=== PATIENT | female | born 1985 ===

== ENCOUNTER → 2016-11-29 | Outpatient (CLI) | payer OTHER ==
[~2016-11-29] MED LIST: PRENTAB26 PO
== END | disposition home or self-care (01) ==
LOC: C.PAPS 10:32
PROVIDERS: ATTEND Obstetrics & Gynecology
DX: Z34.00 Encounter for supervision of normal first pregnancy, unspecified trimester (principal)

== ENCOUNTER → 2016-11-29 | Outpatient (CLI) | payer OTHER ==
[2016-11-29 12:03] LABS: BASO % 0.2 %; BASO ABS # 0.01 K/uL (0-0.2); COMPLETE YES; EOS % 1.7 %; HEMATOCRIT 30.1 % (37-47); LYMPH % 24.8 %; MEAN CELL VOLUME 86.7 fL (80-100); MEAN CORPUSCULAR HEMOGLOBIN 29.7 pg (25-34); MEAN CORPUSCULAR HGB CONC 34.2 g/dl (32-36); MEAN PLATELET VOLUME 11.1 fL (7.4-10.4); MONO % 6.9 %; NEUT % 66.4 %; PLATELET COUNT 226 K/uL (130-400); RED BLOOD COUNT 3.47 M/uL (4.2-5.4); WHITE BLOOD COUNT 4.04 K/uL (4.8-10.8)
== END | disposition home or self-care (01) ==
LOC: C.LAB1850 10:58
PROVIDERS: ATTEND Obstetrics & Gynecology
DX: Z34.00 Encounter for supervision of normal first pregnancy, unspecified trimester (principal)

== ENCOUNTER → 2016-11-29 | Outpatient (CLI) | payer OTHER ==
[2016-12-04 00:15] LABS: CHLAMYDIA TRACH RNA*** NOT DETECTED (NOT DETECTED); GC (NEIS GONORRHOEAE)RNA** NOT DETECTED (NOT DETECTED)
== END | disposition home or self-care (01) ==
LOC: C.LABSPEC 16:42
PROVIDERS: ATTEND Obstetrics & Gynecology
DX: Z34.00 Encounter for supervision of normal first pregnancy, unspecified trimester (principal)

== ENCOUNTER → 2017-04-18 | Outpatient (CLI) | payer OTHER ==
[2017-04-18 13:00] LABS: HEMATOCRIT 34.8 % (37-47)
== END | disposition home or self-care (01) ==
LOC: C.LAB1850 12:26
PROVIDERS: ATTEND Obstetrics & Gynecology
DX: Z34.02 Encounter for supervision of normal first pregnancy, second trimester (principal)

== ENCOUNTER 2017-05-10 07:37 | Inpatient (IN) | payer OTHER ==
[2017-05-10] VITALS (11 sets, daily range): BP systolic 154–168; BP diastolic -1–115; PULSE 96–152; TEMP 28.7–34.4; O2SAT 100; Ht 157.5 cm; Wt 48.1 kg
[~2017-05-10] VITALS: Ht 157.5 cm; Wt 48.1 kg
[2017-05-10] MEDS ORDERED: LACTATED RINGER'S 1000ML 1,000 ML IV PRN (08:01)
[2017-05-10] MEDS ORDERED: BUPIVACAINE 0.25% 30 ML VIAL ONE (08:33)
[2017-05-10] MEDS ORDERED: EpHEDrine SULFATE INJ 50 MG/ML AMP ONE (08:34)
[2017-05-10] MEDS ORDERED: FENTANYL 2MCG/ML ROPIV 1.25MG/ML 100ML BAG EPI ONE (08:34)
[2017-05-10] MEDS ORDERED: FENTANYL CITRATE INJ 50 MCG/1 ML 2 ML VIAL ONE ×3 (08:34→20:56)
[2017-05-10 08:37] LABS: HEMATOCRIT 35.9 % (37-47); MEAN CORPUSCULAR HEMOGLOBIN 31.3 pg (25-34); MEAN CORPUSCULAR HGB CONC 34.8 g/dl (32-36); PLATELET COUNT 187 K/uL (130-400); RED BLOOD COUNT 3.99 M/uL (4.2-5.4); WHITE BLOOD COUNT 6.65 K/uL (4.8-10.8)
[2017-05-10] MEDS ORDERED: PATIENT'S ALLERGY INFO NEEDS ENTERED SCH (08:40)
[2017-05-10] MEDS ORDERED: PRENTAB26 PO (08:54)
[2017-05-10] MEDS: LACTATED RINGER'S 1000ML 1,000 ML IV SCH ×2 (09:49→12:36)
[2017-05-10] MEDS ORDERED: LACTATED RINGER'S 1000ML 500 ML IV PRN ×2 (10:06→10:35)
[2017-05-10] MEDS ORDERED: OXYTOCIN 30 UNITS/500ML NSS IV PRN (10:15)
[2017-05-10] MEDS ORDERED: NALOXONE HCL INJ 1 MG in SODIUM CHLORIDE 0.9% 1000ML 1,000 ML IV PRN (10:35)
[2017-05-10] MEDS ORDERED: NALOXONE HCL INJ 0.4 MG/1 ML VIAL/CARP IV PRN (10:45)
[2017-05-10] MEDS ORDERED: DiphenhydrAMINE HCL 50 MG/ML VIAL IV PRN (10:45)
[2017-05-10] MEDS ORDERED: EpHEDrine SULFATE INJ 50 MG/ML AMP IV PRN (10:45)
[2017-05-10] MEDS ORDERED: ONDANSETRON INJ 2 MG/ML 2 ML VIAL IV PRN (10:45)
[2017-05-10] MEDS ORDERED: NALBUPHINE HCL INJ 10 MG/ML AMP IV PRN (10:45)
[2017-05-10] MEDS ORDERED: FENTANYL 2MCG/ML ROPIV 1.25MG/ML 100ML BAG EPI PRN (10:45)
[2017-05-10] MEDS ORDERED: MISOPROSTOL 200 MCG TAB ONE (16:43)
[2017-05-10] MEDS ORDERED: OXYTOCIN 30 UNITS/500ML NSS IV ONE (16:44)
[2017-05-10] MEDS ORDERED: METHYLERGONOVINE MALEATE 0.2 MG/ML AMP ONE ×2 (16:44→18:36)
[2017-05-10] MEDS ORDERED: CARBOPROST TROMETHAMINE 250 MCG/ML AMP ONE ×2 (16:44→18:42)
--- NOTE | 2017-05-10 18:34 | Anesthesia Procedure Note ---
Anesthesia Epidural Removal Nt Date & Time May 10, 2017 at 18:34 Vital Signs Pain Intensity: 0.0 Notes Mental Status: alert / awake / arousable, participated in evaluation Nausea / Vomiting: adequately controlled Pain: adequately controlled Airway Patency, RR, SpO2: stable & adequate BP & HR: stable & adequate Hydration State: stable & adequate Neuraxial Anesthesia: was administered Anesthetic Complications: no major complications apparent, pt satisfied with anesthetic care Epidural: removed without complications, with tip intact
[2017-05-10] MEDS ORDERED: MIDAZOLAM HCL 1 MG/ML 2ML VIAL ONE ×4 (20:07→23:07)
--- NOTE | 2017-05-10 20:19 | [facility] Post Operative Brief Note ---
Immediate Operative Summary Operative Date May 10, 2017. Pre-Operative Diagnosis hemorrhage Post-Operative Diagnosis hemorrhage Procedure(s) Performed exam under anesthesia, insertion of Bakri balloon, circumferential stitch of cervix, repair of left vaginal sulcal tear Surgeon Shoshana Gomez DO Service Planner Surgeon(s) Vince Ortega MD Estimated Blood Loss 2L total since delivery Findings Approximately 2L blood loss since delivery, includes immediate bleed of approx 500cc, weighed chux after vaginal repair of approx 1000, and another 500cc in transfer to OR. Specimens none Drains chatterjee, clear yellow. Bakri balloon (intrauterine balloon) Anesthesia general Complication(s) hemorrhage Disposition Surgical ICU
[2017-05-10] MEDS ORDERED: TRANEXAMIC ACID INJ 1,000 MG in SODIUM CHLORIDE 0.9% 100ML 100 ML IV ONE ×2 (20:30→21:45)
[2017-05-10 20:37] LABS: MEAN CELL VOLUME 90.9 fL (80-100); MEAN CORPUSCULAR HEMOGLOBIN 29.9 pg (25-34); MEAN CORPUSCULAR HGB CONC 32.9 g/dl (32-36); MEAN PLATELET VOLUME 9.4 fL (7.4-10.4); PLATELET COUNT 93 K/uL (130-400); PLT ESTIMATE DECREASED; RED BLOOD COUNT 1.54 M/uL (4.2-5.4)
[2017-05-10] MEDS ORDERED: CALCIUM GLUCONATE 10% 2,000 MG in SODIUM CHLORIDE 0.9% 50ML 50 ML IV STA (20:37)
[2017-05-10] MEDS ORDERED: CALCIUM GLUCONATE IV SCH (20:45)
[2017-05-10] MEDS ORDERED: NOREPINEPHRINE BIT INJ 8 MG in DEXTROSE 5% 500ML 500 ML IV PRN (20:45)
[2017-05-10] MEDS ORDERED: PHENYLEPHRINE HCL INJ 20 MG in DEXTROSE 5% 500ML 500 ML IV PRN (20:45)
[2017-05-10] MEDS ORDERED: SODIUM CHLORIDE 0.9% IV SCH (20:45)
--- NOTE | 2017-05-10 20:48 | Critical Care Consultation ---
Critical Care Consultation Date of Consultation: May 10, 2017. Attending Physician: Rupal Gomez D.O. Reason for Consultation: Acute Blood Loss Post Hemorrhage History of Present Illness Jaylen Keane is a 32 yo female who delivered her first child this evening. She began oozing from her vaginal area and was taken to the O.R for exploration of possible uterine atony. Dr. Gomez found a cervical laceration and sutured it while also placing a bakri balloon. Pt's stat labs were H&H 4.6/14; Platelets 93. Pt had lost 2,000cc of blood since . She is B- and received 2u of PRBCs O- intraoperatively. She had been hypotensive in the OB OR prior to ICU arrival with SBP in the 60's. Pt had already received Cytotec which was quickly expelled secondary to BM. She then received Methylergonovine 0.2mg and Carboprost Tromethamine 250mcg at 1847 will in the OB OR. Once in the ICU; she was initially started on phenylephrine drip which was quickly held when SBP danny into 180's. Pts goal sbp was <100 however, she continued to rise into the 130-150's. Pt was continuing to ooze vaginally post-op; which was concerning to Dr. Gomez as this was the pts initial presentation that preempted the trip to the OR. She was brought to the ICU intubated. I called Lacey in the Blood Bank at 2006 to initiate the Massive Transfusion Protocol as there was reported delay in getting blood There were at minimum myself, Dr. Moya, Dr. Gomez, and the mechanical unit repairer reaching out to [facility] for the closest and first available transfer. Pt received another 4u of PRBCs (total of 6), 1 Cryo, 4 plasma, 1 plt, and 2g of TXA in total. Myself and Dr. Moya had spoke with Dr. Dockery. This exhausted the hospitals blood products supplied for this patient. Willian Contreras was called in at this time as well. Dr. Moya had spoke with the EMS asking them to stage for this patient here at the hospital to expedite transport. This did not happen; however, they were sending more units of packed red blood cells with approximately arrival around 10:30 PM. We would also receive additional units of FFP from [place]. Pt had ABG of 7.108/33.6/349/10.6 with settings of AC 450/12/5/100%. She was weaned back to 40% FIO2 and received 2Amps of BiCarb. Pt was continuing to ooze vaginally at some points a pulled blood could be seen laying in the bed in her groin area. The bakri balloon contained 1200 mL of additional blood. At this time Dr. Moya ultrasounded the patient's abdomen secondary to distention being noted. He stated there was a small amount of free fluid in the abdomen and nothing noted in the uterine area. Dr. Gomez felt that this could be backwards flow from the fallopian tubes. At this point , there was concern for DIC, retained placenta accreta, or internal bleeding. At this time pt could not be flown 2/2 weather. There was concern for the length of time involved in ground transfer to either of the possible hospitals. Ultimately, all hospitals declined accepting the pt. With no success in regards to transfer; it was decided to take the patient to the O.R. for emergent hysterectomy and abdominal exploration. Pt prior to leaving ICU for transfer was alert and nodding her head to what was said to her. Dr. Lester, Dr. Ortega, and Dr. Gomez were in the O.R. to begin the procedure around 2200. They have continued to have issue with hemostasis and which to transfer immediately post-operatively. Per recommendation from Dr. Dockery 2,500u of Kcentra and 4mg of Factor 7 have been ordered. UPDATE: [facility] accepting patient for transfer status post completion the OR. Blood arrived to the OR around 2250. Pt was receiving 4 additional units of packed red blood cells (total of 10u). She had already received intraoperatively another 4 units of FFP and one of cryoprecipitate. ROS could not be obtain as pt was intubated and sedated. During moments of arousal she nodded yes to pain. However, I was told pt is Non-Arabic speaking and I am not sure if she was truly answering his questions. Past Medical/Surgical History Medical Problems: IUGR (intrauterine growth restriction) Dermatitis High Risk Post Hemorrhage Acute Blood Loss Anemia Surgical History: Emergent hysterectomy cervical laceration repair Family History Unknown at this time Social History Smoking Status: Never Smoker Marital Status: Housing Status: lives with family Allergies Coded Allergies: No Known Allergies (Unverified , 05/10/17) Verified with the patient. Home Medications Scheduled Multivit/Min/Iron/Fol Ac/Pren ( Vitamin), 1 TAB PO DAILY Current Inpatient Medications Current Inpatient Medications Medications (Trade) Dose Ordered Sig/John Route Start Time Stop Time Status Last Admin Dose Admin Lactated Ringer's 1,000 ml @ 125 mls/hr Q8H IV 05/10/17 08:41 05/12/17 08:40 05/10/17 12:36 125 MLS/HR Lactated Ringer's 1,000 ml @ 999 mls/hr Q1H1M PRN IV 05/10/17 08:01 06/09/17 08:00 Oxytocin (Pitocin IV) 30 units UD PRN IV 05/10/17 10:15 06/09/17 10:14 05/10/17 11:13 30 UNITS Lactated Ringer's 500 ml @ 999 mls/hr Q31M PRN IV 05/10/17 10:06 06/09/17 10:05 Fentanyl/ Ropivacaine (Fentanyl 2MCG/ Ml/Ropivacaine 1.25MG/ML) 100 ml PRN PRN EPI 05/10/17 10:45 05/11/17 10:44 Naloxone HCl (Narcan Inj) 0.1 mg UD PRN IV 05/10/17 10:45 05/11/17 10:44 Lactated Ringer's 500 ml @ 999 mls/hr Q31M PRN IV 05/10/17 10:35 05/11/17 10:34 Ephedrine Sulfate (EpHEDrine SULFATE INJ) 10 mg Q5M PRN IV 05/10/17 10:45 05/11/17 10:44 Diphenhydramine HCl (Benadryl Inj) 25 mg Q6H PRN IV 05/10/17 10:45 05/11/17 10:44 Nalbuphine HCl (Nubain Inj) 5 mg Q10M PRN IV 05/10/17 10:45 05/11/17 10:44 Naloxone HCl 1 mg/ Sodium Chloride 1,002.5 ml @ 50 mls/hr Q20H3M PRN IV 05/10/17 10:35 05/11/17 10:34 Ondansetron HCl (Zofran Inj) 4 mg Q6H PRN IV 05/10/17 10:45 05/11/17 10:44 05/10/17 18:04 4 MG Review of Systems ROS cannot be obtained secondary to patient condition, sedation, and intubation. Physical Exam Vital Signs - as noted Laboratory Data - as noted Physical Exam: General -patient sedated on Versed & Fentanyl infusions ENT -endotracheal tube in place Lungs - No paradoxical chest wall movement, coarse to auscultation bilaterally, no wheezes, rales, or rhonchi Heart -sinus tachycardia, No murmur, rubs, clicks, or gallops appreciated Abdomen - BS absent, no bruits noted, distended, slightly firm Extremities - No edema, pedal pulses intact Neuro - Sedated on Versed Infusion CN:No facial asymmetry, uvula/tongue midline Laboratory Results Last 24 Hours Test 05/10/17 08:12 05/10/17 19:30 White Blood Count 6.65 K/uL Red Blood Count 3.99 M/uL Hemoglobin 12.5 g/dL Hematocrit 35.9 % Mean Corpuscular Volume 90.0 fL Mean Corpuscular Hemoglobin 31.3 pg Mean Corpuscular Hemoglobin Concent 34.8 g/dl RDW Standard Deviation 42.7 fL RDW Coefficient of Variation 13.1 % Platelet Count 187 K/uL Mean Platelet Volume 11.0 fL Diagnostic Results CHEST ONE VIEW PORTABLE HISTORY: Intubated and Central Line COMPARISON: None. FINDINGS: The endotracheal tube terminates 2.5 cm from the leandro. Nasogastric tube terminates in the stomach. The fenestrated line of the nasogastric tube is seen at the distal esophagus. Right jugular central venous catheter terminates in the expected location of the proximal SVC. No pneumothorax. No pleural effusions. The lungs are clear. IMPRESSION: Nasogastric tube should be advanced by approximately 5 cm. Otherwise, satisfactory support line placement. Electronically signed by: Cesar Pettit M.D. 05/10/2017 9:20 PM Dictated Date/Time: 05/10/2017 9:19 PM Assessment & Plan PLAN: Heme: * Acute Blood Loss Anemia 2/2 to post- hemorrhage * POD #0 for emergent hysterectomy * ENCO drain in place * Abdomen closed * Vagina packed * Monitor bleeding * Concern for DIC * Fibrinogen and Fibrin Degradation Product orders pending * Trend H&H closely * Massive Transfusion protocol implemented * Will monitor closely and give direction per replacement * Replace 1:1:1 * Current Count of blood products as of 2330: 10PRBCs; 3 cryoprecipitate; 11 Plasma; 3 platelets * We'll administer additional platelets as soon as they arrive; 3 units of packed red blood cells on hold and blood bank * Transfer emergently Neuro: * Continue sedation to a RASS of -2 * Versed and Fentanyl Titrated per parameters on orders Resp: * Continue intubation at this time * Vent settings: AC 20/370/5/40% * Low Tidal Volume secondary to high risk of lung injury * Repeat ABG as needed & with changes * Monitor for s/s of TRALI/TACO * CXR qAM if not transferred CV: * Avoid Hypertension: Goal SBP < 100 * Arterial Line in place to monitor SBP * Monitor on telemetry Fluids/Renal: * Lactated Ringers @ 125 * Strict I&O's * Monitor PRP * Likely BABITA ID: * Monitor for s/s of infection * Post Op Abx GI/Nutrition: * NPO * ENOC Drain in place: Monitor Output Endocrine: * Accu-Checks per protocol, started insulin infusion for 2 blood sugars greater than 180 * No known endocrine disorders CCT: 180 Minutes; This time is exclusive of all separately billable procedures. Thank you for involving us in the care of this patient. Please refer to Dr. Glenn Moya's addendum for further recommendations. I have personally evaluated and examined this patient. I agree with assessment and plan of Spring Doaln PA-C. In summary, I was contacted by Spring Dolan, regarding the patient in obstetrical, hemorrhagic shock. I arrived at the ICU same time the patient did. In discussing with anesthesia the patient had not received the amount of blood product that was ordered. I immediately proceeded to place a ultrasound-guided central venous catheter in the right internal jugular vein. Up to this point the patient had received 2 units of packed red blood cells without additional blood products. We immediately ordered the last remaining blood products available to the patient which was 4 more units of packed red blood cells, 4 units of plasma which had been followed, 1 unit of platelet which completely emptied the platelets supply of the hospital, 1 g TXA. I assisted anesthesia with placement of a left radial/brachial arterial line. Patient was extremely hypotensive and tachycardic due to hemorrhagic shock. OB was called to the bedside and the patient patient continued to ooze from her vagina. We were in contact with [facility] for possible transfer secondary to exhaustion of blood product at [facility]. Due to weather no helicopter EMS units were flying, therefore we were unable to have blood product airlifted to the patient and the patient ultimately airlifted to a tertiary care center for possible hysterectomy and IR guided embolization. Efforts were made to obtain additional blood product from [facility]'s as well as the [facility] [place]. The patient became hemodynamically unstable again secondary to ongoing blood loss. I did a limited bedside ultrasound, it appeared there was minimal intra- abdominal free fluid, particularly in the pelvic gutters there did not appear to be free fluid and the uterus appeared large with clots in addition to packing placed prior to my arrival. General surgery was emergently consulted. At this point we consumed all the available blood product to correct the patient 's hemorrhagic shock and associated coagulopathy. There was no ability to fly the patient to a tertiary care center. Additional blood product was 30-45 minutes away and reportedly being sent. Patient transport would had to have occurred by ground ambulance, they were not present at the hospital yet, transport time would be at least 1.5 hours. Given the extremities of the patient the decision was made to take her emergently for hysterectomy and await additional blood products as the patient would continue to hemorrhage and was too unstable for transfer. The was updated and consented for the procedure. I personally [facility], the builder operator (Dr. May ) reported that he was a single builder operator and will likely be unable to manage the complications at [facility] [place]. While the patient was in the operating room I continue to work with blood bank as well as consult [facility] to arrange transport following surgery. Intraoperatively they were able to complete a total hysterectomy and removed the cervix. Intraoperative findings were concerning for possible retained products and or placenta accreta. The patient continued to have significant ongoing blood loss. At this point I had already contacted Dr. Edyta Dockery, given the inability to correct the coagulopathy we proceeded to give another gram of TXA acid, K Centra, and factor VII. Additional blood products started to arrive from outside facilities and were administered as they were procured. At this point it appears the patient received a total of 10 units of packed red blood cells, 11 units of FFP, 6 units of platelets, 3 units of cryoprecipitate, and was given another gram of TXA at the recommendation of Dr. Dockery. [facility] accepted the patient in transport. After the patient was transferred from the OR suite to the ICU the patient remained hemodynamically stable arterial blood pressures were roughly 140 systolic heart rate improved to 108. Repeat labs were obtained H&H was 8.4 and 25, fibrinogen 218 elevated degradation products, INR 1, PTT of 61.7. Last arterial blood gas revealed a pH of 7.31 PCO2 of 37 PO2 of 124 base excess of -8 on vent settings of assist control rate of 20, tidal volume of 370 (approximately 6 mL/kg) PEEP of 5 FiO2 of 40%. My concern at this point was transfusion associated circulatory overload, I felt that we were likely approaching adequate resuscitation of blood products. Our goal resuscitation and blood product was 1 -1-1, we had not achieved that with limited availability of platelets. I performed a repeat limited bedside ultrasound, there appeared to be trace free fluid in the right paracolic gutter, limited echocardiography revealed no pericardial effusion, hyperdynamic EF, limited chest ultrasound revealed bilateral B lines consistent with interstitial edema on the anterior chest, the IVC was visualized and there was no respiratory variation. Patient was covered with warm blankets and heat lamps to prevent secondary hypothermia. Moments were taken to allow skin to skin contact with the patient's new child prior to transfer. Repeat chest x-ray was performed, there was no evidence of pneumothorax, the central venous catheter was in appropriate position, the endotracheal tube was in appropriate position. A esophageal temperature probe had also been placed. Patient was hemodynamically stable and transferred to [facility] for further evaluation and management. Additional blood products were sent with the patient in case of hemodynamic instability or ongoing blood loss. I have personally spent 240 minutes of critical care time in the direct management of this patient. This is a life/limb threatening event. This includes time spent evaluating patient, direct bedside care, chart review, placing orders, interpretation of diagnostic studies, discussion with consultants, patient, and family members, as well as other required patient management activities. This time is exclusive of all separately billable procedures, and teaching time and separate from and in addition to any other critical care service time.
[2017-05-10] MEDS ORDERED: MIDAZOLAM 125MG/250ML D5W 250 ML IV PRN (20:57)
[2017-05-10] MEDS ORDERED: FENTANYL 1250MCG/250ML NSS 250 ML IV PRN (20:57)
[2017-05-10] MEDS ORDERED: SODIUM BICARB 8.4% INJ 50 MEQ/50 ML SYR IV STA (21:13)
[2017-05-10] MEDS ORDERED: SODIUM BICARB 8.4% INJ 50 MEQ/50 ML SYR IV ONE (21:15)
--- NOTE | 2017-05-10 21:22 | DIAGNOSTIC IMAGING REPORT ---
CHEST ONE VIEW PORTABLE HISTORY: Intubated and Central Line COMPARISON: None. FINDINGS: The endotracheal tube terminates 2.5 cm from the leandro. Nasogastric tube terminates in the stomach. The fenestrated line of the nasogastric tube is seen at the distal esophagus. Right jugular central venous catheter terminates in the expected location of the proximal SVC. No pneumothorax. No pleural effusions. The lungs are clear. IMPRESSION: Nasogastric tube should be advanced by approximately 5 cm. Otherwise, satisfactory support line placement. Electronically signed by: Cesar Pettit M.D. 05/10/2017 9:20 PM Dictated Date/Time: 05/10/2017 9:19 PM
[2017-05-10 21:25] LABS: ISTAT ARTERIAL BLOOD GAS HCO3 11 meq/L (19-24); ISTAT ARTERIAL BLOOD GAS PCO2 34 mmHg (35-46); ISTAT ARTERIAL BLOOD GAS PO2 349 mmHg (80-95); ISTAT ARTERIAL BLOOD GAS pH 7.11 (7.35-7.45); ISTAT CARBON DIOXIDE 12 mEq/l (24-31); ISTAT HEMATOCRIT 33 % (37-47); ISTAT HEMOGLOBIN 11.2 g/dl (12.0-16.0); ISTAT SODIUM 136 mEq/L (135-144)
[2017-05-10] MEDS ORDERED: ALBUMIN HUMAN 5% 12.5 GM/250 ML VIAL IV ONE (21:33)
[2017-05-10 21:45] LABS: HEMATOCRIT 26.7 % (37-47); MEAN CELL VOLUME 88.1 fL (80-100); MEAN CORPUSCULAR HEMOGLOBIN 30.7 pg (25-34); MEAN CORPUSCULAR HGB CONC 34.8 g/dl (32-36); MEAN PLATELET VOLUME 9.7 fL (7.4-10.4); PLATELET COUNT 60 K/uL (130-400); RED BLOOD COUNT 3.03 M/uL (4.2-5.4); WHITE BLOOD COUNT 7.74 K/uL (4.8-10.8)
[2017-05-10] MEDS ORDERED: PROTHROMBIN COMP CONC- KCENTRA 2,500 UNIT in SYRINGE 0 ML IV STA (22:38)
[2017-05-10] MEDS ORDERED: COAGULATION FACTOR VIIA IV STA (22:38)
[2017-05-10] MEDS ORDERED: COAGULATION FACTOR VIIA IV SCH (23:00)
[2017-05-10] MEDS ORDERED: PROTHROMBIN COMP CONC- KCENTRA 2,500 UNIT in SYRINGE 0 ML IV SCH (23:00)
[2017-05-10] MEDS ORDERED: CALCIUM GLUCONATE 10% 2,000 MG in SODIUM CHLORIDE 0.9% 50ML 50 ML IV SCH (23:30)
--- NOTE | 2017-05-10 23:45 | [facility] Operative Report ---
Operative Report Operative Date May 10, 2017. Pre-Operative Diagnosis Post-Delivery Bleeding Post-Operative Diagnosis Post-Delivery Bleeding Procedure(s) Performed Exploratory Laparotomy, Hysterectomy, Vaginal packing, sew of vaginal laceration Surgeon Dr. Lester Sales Process Manager Surgeon(s) Dr. Gomez Estimated Blood Loss 2 liters Findings intra-uterine hemorrhage;vaginal laceration Specimens A. Uterus B. Cervix C. Possible [facility] Drains chatterjee, clear yellow. Bakri balloon (intrauterine balloon) Anesthesia general Disposition Surgical ICU Description of Procedure Gross history. This is a 32-year-old female who recently underwent a routine vaginal delivery late this afternoon. She had postoperative vaginal bleeding to the point that she had apparently an intrauterine balloon placed. I was called by the anesthesia team to the intensive care unit for massive vaginal bleeding. The ICU team anesthesia team and Dr. Adler were all at bedside. Blood products had essentially been exhausted and because of weather they were unable to fly the patient to a tertiary center. The decision was made to take the patient to the operating room for emergent laparotomy with anticipated hysterectomy. After informed consent was obtained the patient was taken emergently to the operating suite placed in a supine position. Patient was already intubated from the ICU. The abdomen was sterilely prepped and draped in usual fashion. A lower midline incision was made with a 10 blade scalpel and carried down through the soft tissue using electrocautery. Anterior rectus fascia was opened using electrocautery. Peritoneum was elevated with hemostats and incised under direct vision using a Metzenbaum scissor. Once in the abdomen we had a large [place] of clear fluid. There was no blood in the abdomen whatsoever. We did immediately note that small bowel was very pale. Because of no obvious uterine perforation we quickly made the decision to perform a hysterectomy. We were able to elevate the uterus and began by making a bladder flap using Metzenbaum scissors and blunt dissection. Once we had the bladder flap taken down we used LigaSure device to come across the round and broad ligaments. We continued to primarily used LigaSure to come down onto the cervical canal itself. We did leave the bilateral tubes and ovaries behind. At this point in the case Dr. Ortega also became available and scrubbed into the case. At this point we used Mateus clamps to come across the cervical canal. We transected it and used #1 Vicryl stick ties to tie off the clamped portions. We originally stayed above the cervix however when we looked in the cervical canal there continued to be a fair amount of backbleeding. We therefore came down lower and using the same technique with Mateus clamps and # 1 Vicryl came across the posterior vaginal wall took out the cervix as well. The patient appeared to be in DIC. She continued to have some generalized oozing. We tied off the vaginal cuff using 0 Vicryl in interrupted figure-of- eight fashion. We thoroughly irrigated the abdomen. Again there was no intra- abdominal pathology to speak of. Prior to closing the cuff there was some abnormal appearing tissue that we removed and sent to pathology to evaluate for placenta accreta. After washing out the abdomen we placed a 10 flat John- Salcedo drain into the pelvis and brought out through a separate stab incision and secured to the skin using 2-0 silk. The fascia was closed using #1 PDS starting at either pole running them and securing them in the midline. Soft tissue was irrigated and closed using skin ana. Please refer to Dr. Dr. Gomez and Dr. Ortega's dictation for their operative note as well. Following closure of the abdominal incision they did a vaginal exploration with oversew of vaginal laceration as well as vaginal packing. The patient will remain intubated transferred back to the intensive care unit where his anticipated she will be transferred to a tertiary center to treat her ongoing suspected DIC. I attest to the content of the Intraoperative Record and any orders documented therein. Any exceptions are noted below.
[2017-05-10 23:49] LABS: ISTAT ARTERIAL BLOOD GAS HCO3 18 meq/L (19-24); ISTAT ARTERIAL BLOOD GAS PCO2 32 mmHg (35-46); ISTAT ARTERIAL BLOOD GAS PO2 139 mmHg (80-95); ISTAT ARTERIAL BLOOD GAS pH 7.34 (7.35-7.45); ISTAT CARBON DIOXIDE 19 mEq/l (24-31); ISTAT DELIVERY SYSTEM Ventilator; ISTAT FIO2 40 %; ISTAT PEEP 5; ISTAT RATE 20; ISTAT SITE Art Line; Vt 370
[2017-05-10 23:58] LABS: HEMATOCRIT 25.1 % (37-47)
[2017-05-11] VITALS (11 sets, daily range): BP systolic 148–167; BP diastolic 98–115; PULSE 99–113; TEMP 34.2–34.5; O2SAT 98–100
[2017-05-11 00:05] LABS: ISTAT ARTERIAL BLOOD GAS HCO3 19 meq/L (19-24); ISTAT ARTERIAL BLOOD GAS PCO2 37 mmHg (35-46); ISTAT ARTERIAL BLOOD GAS PO2 124 mmHg (80-95); ISTAT ARTERIAL BLOOD GAS pH 7.31 (7.35-7.45); ISTAT CARBON DIOXIDE 20 mEq/l (24-31); ISTAT HEMATOCRIT 21 % (37-47); ISTAT HEMOGLOBIN 7.1 g/dl (12.0-16.0); ISTAT SODIUM 142 mEq/L (135-144)
[2017-05-11] MEDS ORDERED: TRANEXAMIC ACID INJ 1,000 MG in SODIUM CHLORIDE 0.9% 100ML 100 ML IV ONE (00:15)
[2017-05-11 00:18] LABS: PARTIAL THROMBOPLASTIN RATIO 2.4; PROTHROMBIN TIME (PATIENT) 10.3 SECONDS (9.0-12.0)
[2017-05-11 00:20] LABS: CALCIUM 6.6 mg/dl (8.5-10.1); CREATININE 1.2 mg/dl (0.60-1.20); MAGNESIUM 1.2 mg/dl (1.8-2.4); PHOSPHORUS 3.9 mg/dl (2.5-4.9); POTASSIUM 3.4 mmol/L (3.5-5.1)
--- NOTE | 2017-05-11 00:20 | Procedure Note ---
Procedure Note Procedure Date May 11, 2017. Central Line Procedure time out: side/site verified, patient ID confirmed, sterile procedure used Consent obtained: emergent consent implied Time of procedure: 20:15 Performed by: attending Indications: poor venous access, central drug admin. Contraindications: coagulopathy Prep: chlorhexadine prep, sterile drape, sterile procedures used Volume anesthetic (ml's): 0 Central line lumen: double Central line location: internal jugular (R) Additional details: ultrasound guidance, Selinger technique used, line sutured , good blood return CXR: appropriate position Complications: none Patient tolerated procedure: well Post-procedure vital signs: reviewed and stable Comments: Critical Care Medicine Point of Care Bedside Ultrasound Procedure: Procedural Ultrasound Procedure Date: 05/10/2017 Indication: Obstetrical, hemorrhagic shock Attending: Sujatha Moya DO Resident/Physician Facilities Planner: Shoshana Dolan Artery AND Vein visualized: Yes Compressible Vein: Yes Guidewire or Short Catheter seen in vein prior to dilation: Yes Line confirmed in Vein with ultrasound: Yes Lung Sliding on side of attempt (if applicable): Yes If no lung sliding or not obtained has CXR been ordered: Yes Impression: Successful placement of right 9 Bengali central lumen catheter Images obtained are saved for permanent record
--- NOTE | 2017-05-11 00:54 | Procedure Note ---
Procedure Note Date of Service May 11, 2017. Procedure Note Critical Care Medicine Point of Care Bedside Ultrasound Procedure: Limited abdominal ultrasound Indication: Hemorrhagic obstetrical shock, enlarging abdomen Date: 05/10/2017 Attending: Sujatha Moya DO Physician Obstetrician Gynecologist: Spring Dolan Organs Examined: Liver, Kidney, Spleen, Genitourinary system, uterus Pericardial Fluid: Absent Hepatorenal fluid: Present: Small Splenorenal fluid: Absent Rectovesical fluid: Absent Additional Findings: Enlarged uterus containing echogenic material as well as fluid-filled bakri balloon tamponade Impression: Small amount of intra-abdominal fluid not consistent with massive intra-abdominal bleeding Plan: Patient going to the operating room for emergent hysterectomy Images obtained are saved for permanent record Critical Care Medicine Point of Care Bedside Ultrasound Procedure: Limited Transthoracic Echocardiogram Indication: Hypotension, massive transfusion Date: 05/10/2017 Attending: Sujatha Moya DO Fellow/Resident/Physician Obstetrician Gynecologist: Spring Doaln Organs Examined: Heart, Vascular system Pericardial fluid: Absent Right ventricle size: Normal LV Contractility: Hyperdynamic RV Contractility: Hyperdynamic IVC size: No respiratory variation Mechanically ventilated breaths: Yes Hemodynamic Status: Heart rate 108, systolic blood pressure 150 IVC respiratory variation % Positive Pressure breaths: No variation (> 20% variation indicative of fluid responsiveness) Intravascular volume status: Hypervolemic state Impression: Concern for transfusion associated circulatory overload, hyperdynamic EF, hypervolemia Plan: Limited additional fluid and products Images obtained are saved for permanent record Critical [facility] [place] Medicine Point of Care Bedside Ultrasound Procedure: Limited Bedside Lung Ultrasound Procedure Date: 05/10/2017 Indication: Massive transfusion, obstetrical shock Attending: Sujatha Moya DO Resident/Physician Obstetrician Gynecologist: Spring Dolan Organs Examined: Lung BLUE point (upper), BLUE point (lower), Phrenic Point (axillary), PLAPS point ( posterior) A lines visualized: Absent, Hemithorax: bilaterally B lines visualized: Presents, Hemithorax: Bilaterally into the anterior chest Lung Sliding: Presents bilaterally, Hemithorax: Bilaterally Tissue-like Sign: Negative, Hemithorax: Bilaterally Shred Sign: Negative, Hemithorax: Bilaterally Quad Sign: Negative, Hemithorax: Bilaterally Sinusoid Sign: Negative, Hemithorax: Bilaterally Impression: Evidence of interstitial edema concerning for volume overload Plan: Limit additional fluids Images obtained are saved for permanent record
--- NOTE | 2017-05-11 01:46 | Anesthesiology Progress Note ---
Anesthesia Post Op Note Date & Time May 11, 2017 at 01:44 Vital Signs Pain Intensity: 0.0 Vital Signs Past 12 Hours Date Time Temp Pulse Resp B/P (MAP) Pulse Ox O2 Delivery O2 Flow Rate FiO2 05/10/17 23:40 107 20 156/106 (135) 100 Mechanical Ventilator 40 05/10/17 23:34 107 20 162/109 (122) 100 Mechanical Ventilator 40 05/10/17 23:24 34.3 108 20 175/111 (122) 100 Mechanical Ventilator 40 05/10/17 20:40 122 12 Mechanical Ventilator 100 05/10/17 20:30 160 12 Mechanical Ventilator 100 05/10/17 20:20 100 05/10/17 20:19 160 12 Mechanical Ventilator 100 Notes Mental Status: see Notes Pt Amnestic to Procedure: Yes Nausea / Vomiting: adequately controlled Pain: adequately controlled Airway Patency, RR, SpO2: see Notes BP & HR: see Notes Hydration State: see Notes Patient was kept intubated and sedated and had a massive resuscitation that ultimately ended in her being transferred to an outside facility. Please refer to additional meditec noted for full details.
--- NOTE | 2017-05-11 02:23 | Anesthesiology Progress Note ---
Anesthesia Progress Note Date of Service May 11, 2017. Progress Notes I had seen Ms. Keane earlier in the day as she presented for an induction and the attending OB physician had requested an early epidural placement to aid in the initial examination of the patient in labor and delivery. The epidural was placed easily on the first attempt and patient soon obtained excellent pain relief. I was called later in the evening by her nurse after successful vaginal delivery of her baby as she requested that I pull the epidural. Patient said she felt well and denied any residual numbness as the local anesthetic had worn off. Epidural catheter was removed without incident. I was on the labor and delivery floor as the OB staff physician Dr. Gomze had called for a of another patient when it was reported by Ms. Keane' s nurse that she was experiencing some vaginal bleeding. I was asked to be on standby while they attended to her. I was informed by the staff OB physician and OB nursing that the would now be on hold as they planned to take Ms. Keane back to the labor and delivery operating room for exam under anesthesia to determine source of her hemorrhage. Patient was brought back urgently to the operating room and placed on standard ASA monitors. She was preoxygenated and intubated on the first attempt using a rapid sequence induction with cricoid pressure. I also placed an additional 18 G peripheral IV in her right hand to ensure I had two points of access for resuscitation. Patient was mildly hypotensive and tachycardic at the beginning of the procedure that worsened throughout the case. I administered a total of 3 liters of crystalloid during the case and also 250ml of voluven near the beginning to try and combat her hypotension and tachycardia. Her blood pressure was also supplemented with multiple doses of phenylephrine, ephedrine and vasopressin during the case as noted on the OR record. As patient became more unstable, I initially had OR nurse call for 2 units of type specific blood. As she continued to deteriorate, I then had the nurse change this to emergency release blood. I also called the blood bank personally and requested the emergency release blood and asked for FFP (which I was told takes 20 minutes to thaw). I also spoke with ICU PA and stated patient was unstable and I would be brining her down intubated and she would require a significant resuscitation ( ICU PA relayed this message to ICU attending and he was present when patient ultimately arrived in the ICU). When the 2 units of pRBC's arrived finally they were given in rapid succession and the obstetricians had placed a bakri balloon and repaired a cervical laceration. While giving the units to the patient, 2 ICU nurses placed the patient on monitor and a zoo veterinarian draw a STAT CBC ( patient found to be severely anemic). I also asked blood back to take the additional products to the ICU as I was going to bring her there JANE. Patient was placed on monitors and transported to the ICU intubated on 100% O2. Of note , patient had barely palpable peripheral pulses but had strong bilateral carotid pulses throughout the case. On arrival to the ICU, central access was obtained by ICU attending while I placed a left radial arterial line under ultrasound guidance. During this time, additional blood products arrived and patient received an additinal 4 units of pRBC's, 1 of cryo, 1 of platelets and 4 FFP, at which point had exhausted the hospital's supply for this patient. Please see ICU attending and PA note for full details regarding transfer attempts and successfully obtaining additional blood products from outside hospital and sources. OB attending Dr. Gomez had asked attending general surgeon Dr. Lester to come to bedside and with consultation of the ICU physician and staff ultimately decided to take the patient to the OR for control of hemorrhage and hysterectomy. Myself and on- call HEDIS ABSTRACTOR transported the patient to the OR on full monitors, intubated and on 100% oxygen. Prior to transport patient was nodding head and moving her arms. In the OR, the massive transfusion continued as we initially gave the patient albumin while we waited for the blood products from the outside hospital. Products arrived shortly after starting the procedure and she was given 2 of platelets, 2 of cryo, 6 of FFP and 4 units of pRBC's. Patient was slightly tachycardic but normotensive and did NOT require any additional vasopressor support. Of note, she had previously received 2 grams of TXA in the ICU prior to bringing her back to the OR. Patient was actively warmed in the OR with an upper martina hugger, head wrapped in towels and warmed fluids through the [place] Hi-Gilbert warmer (via central line). This was continued in the ICU as patient's temperature was noted to be under 36 degrees C. After successful hysterectomy, patient was brought back to the ICU intubated and on monitor with 100% oxygen. Full report was given to the ICU team and they assumed care of this patient. Her blood pressure remained stable in the ICU and patient was ultimately transferred to an OSH (see ICU notes for full details).
--- NOTE | 2017-05-11 03:44 | [facility] Operative Report ---
Operative Report Operative Date May 11, 2017. Pre-Operative Diagnosis Hemorrhage Post-Operative Diagnosis Hemorrhage, DIC Procedure(s) Performed Exploratory Laparotomy, Hysterectomy, Vaginal packing, sew of vaginal laceration Surgeon Dr. Lester Surgical Supplies Sterilizer Surgeon(s) Dr. Gomez, Dr Ortega Estimated Blood Loss 2 liters Findings Upon entry into the abdomen, no intra-abdominal blood but large amount of clear fluid. Blanched uterus. Pale bowel. Normal-appearing fallopian tubes and ovaries. Fluids see procedure description Specimens A. Uterus B. Cervix C. Possible [facility] Drains chatterjee, clear yellow. Bakri balloon (intrauterine balloon) Anesthesia general Complication(s) DIC Disposition Surgical ICU Indications Patient is a 32-year-old who delivered vaginally earlier today. Following delivery she had hemorrhage totaling approximately 2 L. 500 mL was initially noted at time of delivery, Cytotec was given 1000 g per rectum at the time of delivery. A first-degree perineal laceration was repaired at the time of delivery and hemostasis was good after repair. Then she had an additional 1000 mL blood loss. I was called into the room, with fundal massage and evacuation of clots, patient's uterus was palpably firm. A dose of Hemabate and Methergine were each given in attempts to achieve hemostasis. At this time, with continued blood loss, the patient was then taken to the Labor & Delivery operating room for exam under anesthesia and insertion of Bakri balloon. The Bakri balloon was inserted and inflated to 500 mL. The cervix vagina and perineum were inspected and no obvious bleeding lacerations were noted however the cervix edge seemed raw and was oozing blood. The cervical edge was sutured with a circumferential locking stitch. The vagina was packed with half-inch packing. At this time just before leaving the labor and delivery OR the patient's hemoglobin was 4 was 4.9. Arrangements were made to transfer to the ICU. Multiple attempts were made to arrange transfer to a tertiary care center and [facility], and [facility] were called, however the rainy/stormy weather prohibited helicopter flight. After transfer to the ICU, the Bakri balloon had 600 mL of blood in the bag, and patient was bleeding onto the Chux pad on the bed. Within approximately 15 minutes, in the ICU, the Bakri balloon bag contained 1600 mL of blood with an increasing amount on the Chux pad per vagina. At this time due to continued hemorrhage the decision was made to take the patient for emergency laparotomy. Informed consent was obtained from her for emergency surgery with likelihood of hysterectomy to obtain hemostasis. Description of Procedure Please see the indications section for events leading up to surgery in the main or. The patient was taken to the main operating room where she was prepared and draped in the usual sterile fashion in the supine position. Timeout was confirmed. A vertical skin incision was made with scalpel, and carried through to fascia with bovie, rectus muscles were , and the peritoneum was entered bluntly. Upon peritoneal entry, there was a large amount of straw- colored clear fluid. No blood in the abdomen. Bowels pale, uterus pale. The uterus was exteriorized, and bilateral pedicles were taken down with the Ligasure device. A bladder flap was created with metzenbaum scissors. Bilateral uterine vessels were cauterized/transected with the Ligasure device, and the lower uterine segment was clamped across with Mateus clamps and amputated with Bovie. There was still a significant amount of bleeding remaining inside the uterus, therefore the Mateus clamps were placed lower, across the cervix/top of vagina, and the remaining uterus was amputated. Sutures were placed around the clamps, and the remaining vaginal cuff was reapproximated with [id number] 1-vicryl sutures. At this time, while there were multiple sites of generalized oozing, there was no active bleeding in the abdomen/pelvis. The fascia was closed with 0-PDS, the skin was reapproximated with ana. Attention was then turned to the vagina. Multiple large clots were removed manually from the vagina, and the vagina/perineum were re-inspected, looking for areas with active bleeding. 2 [id number] stitches were placed to reapproximate oozy vaginal lacerations in the left vaginal wall. The vagina was then packed with 3 lap sponges, with tails sticking out. At the time of closing, there were no actively bleeding areas noted. The patient was taken back to the ICU for stabilization for transport to a tertiary care center, with more availability of blood products. At the conclusion of surgery, it was estimated that patient lost a total of 4L of EBL. At the conclusion of surgery, patient had rec'd 10u PRBC, 8u FFP, 3u cryo, 3u platelets. 2u tranexamic acid. I attest to the content of the Intraoperative Record and any orders documented therein. Any exceptions are noted below.
--- NOTE | 2017-05-11 03:55 | Vaginal Delivery Summary ---
Vaginal Delivery Summary Pre-delivery diagnoses: induction of labor at 39w for IUGR Post-delivery diagnoses: same + hemorrhage Findings: viable female , Apgars 8/9. Weight: please see nursery records. Procedure: spontaneous vaginal delivery, repair of 1st degree perineal laceration EBL: 500ml Description of delivery: The patient progressed to complete, and began to push with epidural anesthesia. She then vaginally delivered a viable female in the cephalic presentation. The head delivered, followed by anterior, then posterior shoulder , then body. No nuchal cord. The cord was doubly clamped and cut, and the baby was placed on mother's abdomen. A spontaneous cry was heard. The placenta spontaneously delivered intact with a 3-vessel cord. The uterus and vagina were swept of clots and debris. The vagina, cervix, and perineum were inspected, and a 1st degree perineal laceration was noted and repaired with 3-0 vicryl. Due to a seemingly large EBL, cytotec was given 1000mcg [place]. There were no active bleeding lacerations, and uterus was firm. At the conclusion of the repair, there was only a small trickle of blood that was relieved by direct pressure. All sponge, instrument, and needle counts were correct x 2 at the conclusion of the delivery. Mother and baby recovered in the room and were stable at the conclusion of the delivery. Please note: this note is a late entry, as I was unable to enter the note at the time of service due to direct patient care.
--- NOTE | 2017-05-11 06:27 | DIAGNOSTIC IMAGING REPORT ---
KUB CLINICAL HISTORY: NO INSTRUMENT COUNT, EMERGENCY OPERATION COMPARISON STUDY: No previous studies for comparison. FINDINGS: A single portable supine abdomen is provided for interpretation. There are anterior skin ana present. There are no overlying metallic instruments. There is a curvilinear structure within the left lower quadrant which resembles a surgical drain. Clinical correlation is recommended in this regard. There are 2 curvilinear structures projected over the region of the symphysis pubis. These could represent sponges. Again clinical correlation this regard is advocated. IMPRESSION: No metallic instruments are visualized. Electronically signed by: Sigifredo Haynes M.D. 05/11/2017 6:26 AM Dictated Date/Time: 05/11/2017 6:23 AM
--- NOTE | 2017-05-11 06:38 | DIAGNOSTIC IMAGING REPORT ---
CHEST ONE VIEW PORTABLE CLINICAL HISTORY: Respiratory failure COMPARISON STUDY: 05/10/2017 FINDINGS: The heart is normal in size. There are diffuse bilateral pulmonary airspace opacities. There is an endotracheal tube 18 mm above the leandro. 2 enteric tubes are visualized. One terminates at the esophagogastric junction, the other terminates within the stomach. There is a right internal jugular central venous catheter which projects of the superior vena cava.[ IMPRESSION: Interval development of bilateral pulmonary airspace opacities, likely representing pulmonary edema. Clinical and radiographic follow-up is recommended. Electronically signed by: Sigifredo Hyanes M.D. 05/11/2017 6:37 AM Dictated Date/Time: 05/11/2017 6:34 AM
--- NOTE | 2017-05-25 16:48 | Discharge Summary ---
Discharge Summary Date of Service May 25, 2017. Discharge Summary Admission Date: May 10, 2017 at 07:37 Discharge Disposition: Acute care facility ([facility]) Principal Diagnosis: hemorrhage Procedures: Vaginal delivery with repair of 1st degree perineal laceration. Exam under anesthesia with suturing of cervix and insertion of Bakri balloon (L& D OR) Total abdominal hysterectomy (main OR) Consultations: Anesthesiology, Critical care, General surgery Hospital Course The patient was admitted for 39-weeks induction of labor for baby with intrauterine growth restriction. After spontaneous vaginal delivery, patient experienced a hemorrhage. She was given cytotec and taken to the OR on L&D for exam under anesthesia and insertion of Bakri balloon. She rec'd hemabate and methergine during this exam. She continued to bleed and was transferred to ICU due to hemodynamic instability afterwards. Multiple attempts were made to try to transfer patient to a tertiary facility, however due to poor weather conditions, could not fly patient by helicopter to tertiary facility. She continued to hemorrhage through the Bakri balloon, and was taken to Main OR with gynecology and general surgery for total abdominal hysterectomy in an effort to control massive hemorrhage. Additional blood products arrived by ground transport at the conclusion of the case in the OR, patient was stabilized, and sent by ground transport to [facility] ICU. She rec'd a total of 10u PRBC, 4u FFP, and 1u cryo blood products prior to transfer. Total Time Spent: Greater than 30 minutes This includes examination of the patient, discharge planning, medication reconciliation, and communication with other providers. Discharge Instructions Please refer to the electronic Patient Visit Report (Discharge Instructions) for additional information.
== END 2017-05-11 00:40 | disposition short-term general hospital (02) | DRG 768 ==
LOC: C.LD 07:37 → C.MSICU 20:17
PROVIDERS: ADMIT Obstetrics & Gynecology; ATTEND Obstetrics & Gynecology
PROC: 0HQ9XZZ Repair Perineum Skin, External Approach (ICD-10-PCS; 2017-05-10)
PROC: 0UTC0ZZ Resection of Cervix, Open Approach (ICD-10-PCS; 2017-05-10)
PROC: 0UT90ZZ Resection of Uterus, Open Approach (ICD-10-PCS; 2017-05-10)
PROC: 0W3R7ZZ Control Bleeding in Genitourinary Tract, Via Natural or Artificial Opening (ICD-10-PCS; 2017-05-10)
PROC: 10E0XZZ Delivery of Products of Conception, External Approach (ICD-10-PCS; principal; 2017-05-10 18:55)
PROC: 0HQ9XZZ Repair Perineum Skin, External Approach (ICD-10-PCS; principal; 2017-05-10 18:55)
PROC: 03HY32Z Insertion of Monitoring Device into Upper Artery, Percutaneous Approach (ICD-10-PCS; 2017-05-10 21:42)
PROC: 5A1935Z Respiratory Ventilation, Less than 24 Consecutive Hours (ICD-10-PCS; 2017-05-10 21:42)
PROC: 02HV33Z Insertion of Infusion Device into Superior Vena Cava, Percutaneous Approach (ICD-10-PCS; 2017-05-10 21:42)
DX: O70.0 First degree perineal laceration during delivery (principal); O72.1 Other immediate postpartum hemorrhage; D62 Acute posthemorrhagic anemia; O75.1 Shock during or following labor and delivery; Z3A.39 39 weeks gestation of pregnancy; O99.02 Anemia complicating childbirth; O72.3 Postpartum coagulation defects; Z37.0 Single live birth